=== PATIENT | female | born 1960 | race Two or more races ===

== ENCOUNTER 2023-06-07 05:45 | Day surgery (SDC) | payer OTHER ==
[~2023-06-07] VITALS: Ht 162.6 cm; Wt 56.7 kg
[~2023-06-07 05:45] MED LIST: PROAIR RESPICL90 MCG; PROLIA60 MG/1 ML
== END 2023-06-07 11:15 | disposition home or self-care (01) ==
LOC: CIR.AMB 05:45
PROVIDERS: ATTEND Colon & Rectal Surgery
DX: R15.9 Full incontinence of feces (principal); I10 Essential (primary) hypertension; Z88.6 Allergy status to analgesic agent; Z20.822 Contact with and (suspected) exposure to COVID-19
CPT/HCPCS: 64581; 95972; C1778

== ENCOUNTER 2023-06-21 05:09 | Day surgery (SDC) | payer OTHER | END 2023-06-21 10:45 | disposition home or self-care (01) | LOC: CIR.AMB 05:09 | PROVIDERS: ATTEND Colon & Rectal Surgery | DX: R15.9 Full incontinence of feces (principal); Z88.0 Allergy status to penicillin; Z88.6 Allergy status to analgesic agent; Z20.822 Contact with and (suspected) exposure to COVID-19 | CPT/HCPCS: 64590; 95972; C1767 ==

== ENCOUNTER 2024-10-02 11:48 | Emergency (ER) | payer OTHER ==
[~2024-10-02] VITALS: Ht 162.6 cm; Wt 59.0 kg
[2024-10-02] MEDS ORDERED: ANUCORT-HC25 MG RC (12:50)
[2024-10-02 13:51] LABS: HEMATOCRIT 42.1 % (36.0-45.00); HEMOGLOBIN 14.1 g/dL (12.0-15.00); MEAN CELL VOLUME 87.4 fL (80.00-100.00); MEAN CORPUSCULAR HEMOGLOBIN 29.3 pg (27.00-32.0); MEAN CORPUSCULAR HGB CONC 33.5 g/dl (32.0-36.0); PLATELET COUNT 271 K/uL (150-450); RED BLOOD COUNT 4.82 M/uL (4.00-6.00); RED CELL DISTRIBUTION WIDTH 13.6 % (11.5-14.5)
[2024-10-02 14:08] LABS: INR 1.01; PARTIAL THROMBOPLASTIN TIME 24.8 SECONDS (22.0-34.0)
[2024-10-02 14:10] LABS: ALBUMIN 3.7 gm/dL (3.4-5.0); BILIRUBIN TOTAL 0.58 mg/dL (0.3-1.2); CALCIUM 9.1 mg/dL (8.5-10.1); CREATININE SERUM 0.85 mg/dL (0.55-1.02); GFR 67.12; GLOBULINA 3.5 G/DL (2.4-3.5); POTASSIUM 4.67 mEq/L (3.5-5.1); TOTAL PROTEIN 7.2 gm/dL (6.4-8.2)
[2024-10-02] MEDS ORDERED: ACETAMINOPHEN 325 MG TABLET PO ONE ×2 (15:30→15:40)
[2024-10-02] MEDS ORDERED: HYOSCYAMINE SULFATE 0.125 MG TAB.SUBL ONE (19:37)
[2024-10-02] MEDS ORDERED: HYOSCYAMINE SULFATE 0.125 MG TAB.SUBL SL ONE (19:45)
== END 2024-10-02 20:54 | disposition home or self-care (01) ==
LOC: ER 11:50
PROVIDERS: General Practice
DX: R19.7 Diarrhea, unspecified (principal); R10.9 Unspecified abdominal pain; Z88.6 Allergy status to analgesic agent